=== PATIENT | female | born 1965 | race African-American/Black ===

== ENCOUNTER 2022-08-25 07:09 | Day surgery (SDC) | payer OTHER ==
[2022-08-20 09:49] VITALS: BMI 39.0
[2022-08-25] MEDS ORDERED: MIDAZOLAM HCL 2 MG/2 ML SINGLE DOSE VIAL ONE (08:35)
[2022-08-25] MEDS ORDERED: BUPIVACAINE LIPOSOME/PF (EXPAREL) 266 MG/20 ML VIAL ONE (08:36)
[2022-08-25] MEDS ORDERED: BUPIVACAINE HCL/PF 0.5% (5MG/ML) 10 ML VIAL ONE (08:36)
[2022-08-25] MEDS ORDERED: ceFAZolin SODIUM 1 GM VIAL ONE ×2 (08:59→10:00)
[2022-08-25] MEDS ORDERED: VANCOMYCIN 1,000 MG VIAL (RESTRICTED TO ID ONLY) ONE (08:59)
[2022-08-25] MEDS ORDERED: ALBUTEROL SO4 0.083% IH SOL 2.5 MG/3 ML VIAL.NEB. NEB PRN (09:48)
[2022-08-25] MEDS ORDERED: ONDANSETRON 4 MG/2 ML VIAL IVPUSH PRN ×2 (09:50→12:38)
[2022-08-25] MEDS ORDERED: LACTATED RINGERS SOLUTION 1,000 ML IV SCH ×2 (10:00→12:45)
[2022-08-25] MEDS ORDERED: TRANEXAMIC ACID 1000 MG/10 ML VIAL ONE (10:00)
[2022-08-25] MEDS ORDERED: DEXAMETHASONE SOD PHOSPHATE 4 MG/1 ML VIAL ONE (10:00)
[2022-08-25] MEDS ORDERED: PATIENT'S OWN MEDICATION (NON-FORMULARY) (Triamterene/Hydrochlorothiazid [Triamterene-Hctz PO SCH (10:00)
[2022-08-25] MEDS ORDERED: SUCCINYLCHOLINE CHLORIDE 200 MG/10 ML SYRINGE ONE (10:07)
[2022-08-25] MEDS ORDERED: CEFAZOLIN 2 GM in DEXTROSE 5%-WATER - 50 ML IVPB ONE (10:30)
[2022-08-25] MEDS ORDERED: CELECOXIB 200 MG CAPSULE PO ONE (10:30)
[2022-08-25] MEDS ORDERED: TRANEXAMIC ACID 1000 MG/10 ML VIAL IVPUSH ONE (11:00)
[2022-08-25] MEDS ORDERED: oxyCODONE HCL 5 MG TABLET PO PRN (12:42)
[2022-08-25] MEDS: ACETAMINOPHEN 1000 MG/100 ML BAG IVPB ONE ×2 (12:50→19:47)
[2022-08-25] MEDS ORDERED: KETOROLAC TROMETHAMINE 30 MG/1 ML VIAL ONE (13:05)
[2022-08-25] MEDS: KETOROLAC TROMETHAMINE 30 MG/1 ML VIAL IVPUSH ONE ×2 (13:15→19:47)
[2022-08-25] MEDS: MULTIVITAMINS (DAILY MVI) TABLET (FP) PO SCH (14:15)
[2022-08-25] MEDS: PANTOPRAZOLE 40 MG TABLET PO SCH (14:15)
[2022-08-25] MEDS: SENNOSIDES/DOCUSATE COMBO (SENNA PLUS) TABLET (UD) PO SCH ×2 (14:15→21:39)
[2022-08-25] MEDS: CEFAZOLIN SODIUM 2 GM in DEXTROSE 5%-WATER 100 ML IVPB SCH (17:28)
[2022-08-25] MEDS: ACETAMINOPHEN 500 MG TABLET (FP) PO SCH (21:38)
[2022-08-25] MEDS ORDERED: ROSUVASTATIN CA 10 MG TABLET PO SCH (22:00)
[2022-08-26] MEDS: CEFAZOLIN SODIUM 2 GM in DEXTROSE 5%-WATER 100 ML IVPB SCH (01:16)
[2022-08-26] MEDS: ACETAMINOPHEN 500 MG TABLET (FP) PO SCH ×4 (06:08→16:49)
[2022-08-26] MEDS: oxyCODONE HCL 10 MG SUSTAINED ACTING TABLET PO SCH ×2 (06:08→11:16)
[2022-08-26] MEDS ORDERED: ASPIRIN 325 MG TABLET PO SCH (08:00)
[2022-08-26 08:14] LABS: HEMATOCRIT 30.5 % (32.4-45.2); HEMOGLOBIN 10.2 G/dL (10.7-15.3); MCH 28.7 pg (25.7-33.7); MCHC 33.4 g/dl (32.0-36.0); MEAN CELL VOLUME 85.8 fl (80-96); MEAN PLT VOLUME 9.8 fl (7.5-11.1); PLATELET COUNT 178.2 10^3/uL (134-434); RBC 3.56 10^6/uL (3.60-5.2); RDW 14.9 % (11.6-15.6)
[2022-08-26 09:23] VITALS: RESP 18
[2022-08-26] MEDS ORDERED: METHIMAZOLE 5 MG TABLET PO SCH (10:00)
[2022-08-26] MEDS ORDERED: TRIAMTERENE AND HCTZ - 37.5 MG/25 MG CAPSULE PO SCH (10:00)
[2022-08-26] MEDS: oxyCODONE HCL 5 MG TABLET PO PRN ×3 (10:35→18:45)
[2022-08-26] MEDS: PANTOPRAZOLE 40 MG TABLET PO SCH (11:13)
[2022-08-26] MEDS: SENNOSIDES/DOCUSATE COMBO (SENNA PLUS) TABLET (UD) PO SCH (11:13)
[2022-08-26] MEDS: MULTIVITAMINS (DAILY MVI) TABLET (FP) PO SCH (11:13)
[2022-08-26 14:03] VITALS: BP 130/78; PULSE 89; TEMP 99
[2022-08-26] MEDS: PATIENT'S OWN MEDICATION (NON-FORMULARY) (Fluticasone/Salmeterol [Advair Hfa 230-21 Mcg In PO SCH ×2 (16:31→16:49)
== END 2022-08-26 19:45 | disposition home health service (06) ==
LOC: FASUSAT 07:09 → FM/S 14:10 → FASUSAT 08-26 19:45
PROVIDERS: ATTEND Orthopaedic Surgery
PROC: 8E0Y0CZ Robotic Assisted Procedure of Lower Extremity, Open Approach (ICD-10-PCS; 2022-08-25)
PROC: 0SRC0JA Replacement of Right Knee Joint with Synthetic Substitute, Uncemented, Open Approach (ICD-10-PCS; principal; 2022-08-25 10:09)
DX: M17.11 Unilateral primary osteoarthritis, right knee (principal)
CPT/HCPCS: 20985; 27447; C1776; S2900; 36415; 73560-TC-RT-FY; 85027; 94660; 94760; 97010-GP; 97116-GP; 97162-GP; C1713

== ENCOUNTER 2022-11-24 06:14 | Day surgery (SDC) | payer OTHER ==
[2022-11-16 14:38] VITALS: BMI 41.1
[~2022-11-24 06:14] MED LIST: CEFAZOLIN 2 GM in DEXTROSE 5%-WATER - 50 ML IVPB ONE; TRANEXAMIC ACID 1000 MG/10 ML VIAL IVPUSH ONE
[2022-11-24] MEDS: CELECOXIB 200 MG CAPSULE PO ONE ×2 (06:30→13:37)
[2022-11-24] MEDS ORDERED: VANCOMYCIN 1,000 MG VIAL (RESTRICTED TO ID ONLY) ONE (07:04)
[2022-11-24] MEDS ORDERED: ceFAZolin SODIUM 1 GM VIAL ONE ×2 (07:04→07:06)
[2022-11-24] MEDS ORDERED: DEXAMETHASONE SOD PHOSPHATE 4 MG/1 ML VIAL ONE (07:06)
[2022-11-24] MEDS ORDERED: ONDANSETRON 4 MG/2 ML VIAL ONE (07:06)
[2022-11-24] MEDS ORDERED: PROPOFOL 40 ML ONE (07:07)
[2022-11-24] MEDS ORDERED: MIDAZOLAM HCL 2 MG/2 ML SINGLE DOSE VIAL ONE (07:07)
[2022-11-24] MEDS ORDERED: ACETAMINOPHEN INJECTION 100 ML IVPB ONE (07:23)
[2022-11-24] MEDS ORDERED: BUPIVACAINE LIPOSOME/PF (EXPAREL) 266 MG/20 ML VIAL ONE (07:23)
[2022-11-24] MEDS ORDERED: BUPIVACAINE HCL/PF 0.5% (5 MG/ML) 30 ML VIAL IJ ONE (07:23)
[2022-11-24] MEDS ORDERED: ONDANSETRON 4 MG/2 ML VIAL IVPUSH PRN (07:40)
[2022-11-24] MEDS ORDERED: oxyCODONE HCL 5 MG TABLET PO PRN (07:40)
[2022-11-24] MEDS ORDERED: ACETAMINOPHEN 325 MG TABLET (FP) PO PRN (07:40)
[2022-11-24] MEDS ORDERED: ALBUTEROL SO4 HFA INHALER IH PRN (07:57)
[2022-11-24] MEDS ORDERED: TRANEXAMIC ACID 1000 MG/10 ML VIAL ONE (08:54)
[2022-11-24] MEDS ORDERED: THROMBIN (BOVINE) 5,000 UNIT VIAL TP ONE (10:00)
[2022-11-24] MEDS ORDERED: PROPOFOL 20 ML ONE (10:14)
[2022-11-24] MEDS: PANTOPRAZOLE 40 MG TABLET PO SCH (13:38)
[2022-11-24] MEDS: SENNOSIDES/DOCUSATE COMBO (SENNA PLUS) TABLET (UD) PO SCH ×2 (13:38→21:28)
[2022-11-24] MEDS: MULTIVITAMINS (DAILY MVI) TABLET (FP) PO SCH (13:38)
[2022-11-24] MEDS: LACTATED RINGERS SOLUTION 1,000 ML IV SCH (13:38)
[2022-11-24] MEDS: oxyCODONE HCL 5 MG TABLET PO PRN ×2 (16:11→23:42)
[2022-11-24 16:13] LABS: HIV INTERPRETATION NEGATIVE (NEGATIVE)
[2022-11-24] MEDS: CEFAZOLIN 3 GM in DEXTROSE 5%-WATER - 100 ML IVPB SCH ×2 (16:20→23:30)
[2022-11-24] MEDS ORDERED: ROSUVASTATIN CA 10 MG TABLET PO SCH (22:00)
[2022-11-25] MEDS ORDERED: ASPIRIN 325 MG TABLET PO SCH (08:00)
[2022-11-25 08:45] LABS: HEMATOCRIT 31.3 % (32.4-45.2); HEMOGLOBIN 10.4 G/dL (10.7-15.3); MCH 28.2 pg (25.7-33.7); MCHC 33.1 g/dl (32.0-36.0); MEAN CELL VOLUME 85.4 fl (80-96); MEAN PLT VOLUME 9.8 fl (7.5-11.1); PLATELET COUNT 202.7 10^3/uL (134-434); RBC 3.67 10^6/uL (3.60-5.2); RDW 15.8 % (11.6-15.6); WHITE BLOOD COUNT 12.3 10^3/uL (4.0-10.8)
[2022-11-25] MEDS: SENNOSIDES/DOCUSATE COMBO (SENNA PLUS) TABLET (UD) PO SCH (09:23)
[2022-11-25] MEDS: MULTIVITAMINS (DAILY MVI) TABLET (FP) PO SCH (09:23)
[2022-11-25] MEDS: PANTOPRAZOLE 40 MG TABLET PO SCH (09:23)
[2022-11-25] MEDS: oxyCODONE HCL 5 MG TABLET PO PRN ×3 (09:24→17:00)
[2022-11-25] MEDS: LACTATED RINGERS SOLUTION 1,000 ML IV SCH (09:25)
[2022-11-25 09:55] VITALS: RESP 18
[2022-11-25] MEDS ORDERED: TRIAMTERENE AND HCTZ - 37.5 MG/25 MG CAPSULE PO SCH (10:00)
[2022-11-25] MEDS ORDERED: REFRIGERATED ANITBIOTICS ONE (15:38)
[2022-11-25 19:58] VITALS: BP 110/48; PULSE 70; TEMP 98.5
== END 2022-11-25 21:02 | disposition home health service (06) ==
LOC: FASUSAT 06:14 → FM/S 12:09 → FASUSAT 11-25 21:02
PROVIDERS: ATTEND Orthopaedic Surgery
PROC: 0SRD0J9 Replacement of Left Knee Joint with Synthetic Substitute, Cemented, Open Approach (ICD-10-PCS; principal; 2022-11-24 09:00)
DX: M17.12 Unilateral primary osteoarthritis, left knee (principal)
CPT/HCPCS: 20985; 27447; S2900; 36415; 73560-TC-LT-FY; 84460; 85027; 86803; 87340; 87389; 94660; 94760; 97010-GP; 97116-GP; 97161-GP; C1713; C1776; C1889